=== PATIENT | female | born 1970 | race Caucasian/White ===

== ENCOUNTER 2022-07-02 08:33 | Outpatient (CLI) | payer OTHER, SELFPAY | END 2022-07-02 08:34 | disposition home or self-care (01) | LOC: NFLDREF 07-03 01:12 | PROVIDERS: PCP Physician Assistant Medical; Referring Provider Physician Assistant Medical; Visit Provider Physician Assistant Medical | DX: Z00.00 Encounter for general adult medical examination without abnormal findings (principal); E03.9 Hypothyroidism, unspecified; D50.9 Iron deficiency anemia, unspecified | CPT/HCPCS: 80053; 80061; 84443 ==

== ENCOUNTER 2023-07-14 13:08 | Outpatient (CLI) | payer OTHER, SELFPAY | END 2023-07-14 13:09 | disposition home or self-care (01) | LOC: FRMREF 13:09 | PROVIDERS: PCP Physician Assistant Medical; Visit Provider Physician Assistant Medical | DX: E03.9 Hypothyroidism, unspecified (principal); D50.9 Iron deficiency anemia, unspecified | CPT/HCPCS: 84443 ==

== ENCOUNTER 2024-06-30 09:59 | Outpatient (CLI) | payer OTHER, SELFPAY ==
[2024-07-02 03:07] LABS: HPV Source Cervical; HPV, High Risk by TMA Not Detected
== END 2024-06-30 10:00 | disposition home or self-care (01) ==
PROVIDERS: PCP Physician Assistant Medical; Visit Provider Nurse Practitioner Family
DX: D50.9 Iron deficiency anemia, unspecified (principal); E03.9 Hypothyroidism, unspecified; N92.0 Excessive and frequent menstruation with regular cycle; Z12.4 Encounter for screening for malignant neoplasm of cervix; Z13.6 Encounter for screening for cardiovascular disorders; Z13.0 Encounter for screening for diseases of the blood and blood-forming organs and certain disorders involving the immune mechanism
CPT/HCPCS: 80053; 80061; 82728; 84443; 87624; 87625; 88141; 88142